=== PATIENT | male | born 1955 | race Caucasian/White ===

== ENCOUNTER 2025-02-27 13:34 | Outpatient (OUT) | payer MEDICARE, SELFPAY ==
[2025-02-27 14:01] LABS: Hematocrit 39.6 % (42.0-54.0); Hemoglobin 13.2 g/dL (14.0-18.0); Immature Granulocytes Abs Auto 0.01 10^3/uL (0.00-0.03); Immature Granulocytes Pct Auto 0.2 % (0.0-0.5); Lymphocytes Absolute Auto 0.8 10^3/uL (1.2-3.8); Mean Corpuscular HGB Conc 33.3 g/dL (29.9-35.2); Mean Corpuscular Hemoglobin 29.9 pg (25.9-34.0); Mean Corpuscular Volume 89.8 fL (80.0-94.0); Platelet Count 185 10^3/uL (150-450); Red Blood Count 4.41 10^6/uL (4.70-6.10); White Blood Count 5.6 10^3/uL (4.0-11.0)
== END 2025-02-27 13:35 | disposition home or self-care (01) ==
LOC: LAB 13:44
PROVIDERS: PCP Family Medicine; Visit Provider Family Medicine
DX: R19.7 Diarrhea, unspecified (principal)
CPT/HCPCS: 36415; 85025; 85652; 86140

== ENCOUNTER 2025-02-28 13:55 | Outpatient (REF) | payer MEDICARE, SELFPAY ==
--- OUTSIDE RECORDS SUMMARY | 2025-02-28 13:58 | XMS_ITS | Patient Health Record ---
Author Organization [facility] in [place] Address [address] [place] [address] Care Team Providers Care Sterile Technician Name Role Phone Paulie Tran Primary Care Provider Allergies Allergen (clinical drug ingredient) Drug/Non Drug Allergy documented on EMR Reaction Allergy Type Onset Date Status Compazinemental status changeDrug AllergyActive Results Component Value Reference Range Notes UA DIP NONAUTO WO MICRO (810 02) - IN OFFICE Reviewed date:02/27/2025 07:57:47 PM Interpretation: Performing Lab: Notes/Report: COLOR straw CLARITYcloudyGLUCOSEnegBILIRUBINnegKETONEposSPECIFIC GRAVITY1.792ACGLAmlrNS2.5 PROTEINposUROBILINOGENnegNITRITEnegLEUKOCYTE ESTERASEnegCBC AUTO DIFF Reviewed date:02/27/2025 07:57:47 PM Interpretation: Performing Lab: Notes/Report: [facility] ,White Blood Count5.64.0-11.0 10 3/uLRed Blood Count4.414.70-6.10 10 6/uL Hnyuuzqmmi22.214.0-18.0 g/xGPxhzxksegt53.642.0-54.0 %Mean Corpuscular Frkcen19.8 80.0-94.0 fLMean Corpuscular Ibwgwbecet81.925.9-34.0 pgMean Corpuscular HGB Conc 33.329.9-35.2 g/dLRed Cell Distribution Width13.011.0-15.0 %Platelet Zelwg073 150-450 10 3/uLMean Platelet Cvirsa01.79.5-13.5 fLNeutrophils Percent Auto73.8 43.0-75.0 %Lymphocytes Percent Auto13.720.5-60.0 %Monocytes Percent Auto9.61.7- 12.0 %Eosinophils Percent Auto1.80.9-7.0 %Basophils Percent Auto0.90.2-2.0 % Immature Granulocytes Pct Auto0.20.0-0.5 %Neutrophils Absolute Auto4.21.4-6.5 10 3/uLLymphocytes Absolute Auto0.81.2-3.8 10 3/uLMonocytes Absolute Auto0.50.3-0.8 10 3/uLEosinophils Absolute Auto0.10.0-0.7 10 3/uLBasophils Absolute Auto0.10.0- 0.1 10 3/uLImmature Granulocytes Abs Auto0.010.00-0.03 10 3/uLPerforming Lab:see noteML - [facility] LBCRP Reviewed date:02/27/2025 07:57:47 PM Interpretation: Performing Lab: Notes/Report: [facility] ,C Reactive Protein<0.50<=0.50 mg/dLPerforming Lab:see noteML - [facility] LBErythrocyte Sedimentation Rate Reviewed date:02/27/2025 07:57:47 PM Interpretation: Performing Lab: Notes/Report: [facility] ,Erythrocyte Sedimentation Rate13<=20 mm/hrPerforming Lab:see noteML - [facility] LB Reason For Referral No Information Medications Medication SIG (Take, Route, Frequency, Duration) Notes Start Date End Date Status amLODIPine Besylate 10 MG TAKE 1 TABLET BY MOUTH EVERY DAY FOR 90 DAYS; Duration: 90 ActiveAtorvastatin Calcium 80 MGTAKE 1 TABLET BY MOUTH EVERY DAY FOR 90 DAYS; Duration: 90ActiveIron (Ferrous Sulfate) 325 (65 Fe) MG1 tablet Orally twice a day; Duration: 30 days5ActiveOndansetron 4 MG1 tablet on the tongue and allow to dissolve Orally qid5ActiveDiclofenac Sodium 75 MG1 tablet as needed Orally Twice a day; Duration: 30 days5ActiveHyoscyamine Sulfate 0.125 MG1-2 tabs SL SL every 4 hrs PRN abd pain5Active Social History Tobacco Use: Social History Observation Description Date Details (start date - stop date) Former Smoker 04/10/1978 - 04/10/1994 Tobacco Use/Smoking Question Answer Notes Patient is a former smoker When did you start smoking?04/10/1978When did you stop smoking?04/10/1994How long has it been since you last smoked?> 10 yearsAdditional Findings: Tobacco Leg-DmmcCq-nqcs smokerAlcohol Screen (Audit-C) Question Answer Notes Did you have a drink containing alcohol in the p ast year? Yes How often did you have 6 or more drinks on one occasion in the past year?Never (0 point)How many drinks did you have on a typical day when you were drinking in the past year?3 or 4 drinks (1 point)How often did you have a drink containing alcohol in the past year?Weekly (3 points)Qfyfye5KtdtickcbsreqlKiiopbxnFEDWM-F (Standard) Question Answer Notes Did you have a drink containing alcohol in the p ast year? Yes How often did you have six or more drinks on one occasion in the past year?Never (0 point)How many drinks did you have on a typical day when you were drinking in the past year?1 or 2 drinks (0 point)How often did you have a drink containing alcohol in the past year?2 to 3 times a week (3 points)Wetrdm8Qmpxdevazunyer Negative Problems Problem Type SNOMED Code ICD Code Onset Dates Problem Status W/U Status Risk Notes Problem Chronic diastolic he art failure (205018044) Chronic diastolic (congestive) heart failure (I50.32) ActiveconfirmedProblemHemorrhoids (64370962)Unspecified hemorrhoids (K64.9) ActiveconfirmedProblemOsteoarthritis (989682135)Osteoarthritis (M19.90)Active confirmedProblemValvular heart disease (364097)Valvular heart disease (I38) ActiveconfirmedProblemAcute sinusitis (08766277)Acute sinus infection (J01.90) ActiveconfirmedProblemIrritable bowel (76024639)Irritable bowel (K58.9)Active confirmedProblemHypertensive heart failure (80752465)Hypertensive heart disease with CHF (I11.0)ActiveconfirmedProblemLow back pain (finding) (112539308)Low back pain at multiple sites (M54.50)Activeconfirmed Vital Signs Blood pressure diastolic 82 mm Hg 02/04/2025 Xfsvgc98 in02/04/2025lood pressure hazyldul070 mm Hg02/04/20255632Ddlaps315.0 lbs 02/04/2025BMI34.17 kg/m202/04/2025 Encounters Encounter Location Date Provider Diagnosis [facility] [address] [place] [address] 12/06/2024 Paulie Hoy Low back pain at [facility] M54.50 [facility] [address] [place] [address] 05/07/2024 Paulie Hoy Low back pain at [facility] M54.50 ; Osteoarthritis M19.90 and Valvular heart disease I38 [facility] [address] [place] [address] 02/04/2025 Paulie Hoy Hypertensive heart disease with CHF I11.0 and Irritable bowel K58.9 [facility] [address] [place] [address] 01/07/2025 Paulie Hoy [facility] [place] [address] [facility] [place] [address]06/20[place]Di[place] [address] [place] [address]/20/2025Doug Hoy Assessments Encounter Date Diagnosis (ICD Code) Assessment Notes Treatment Notes Treatment Clinical Notes Section Notes 05/07/2024 Low back pain at multiple sites (ICD-10 - M54.50) 05/07/2024Osteoarthritis (ICD-10 - M19.90)12/06/2024Low back pain at multiple sites (ICD-10 - M54.50)02/04/2025Hypertensive heart disease with CHF (ICD-10 - I11.0)02/04/2025Irritable bowel (ICD-10 - K58.9)consider creon02/13/2025Diarrhea (ICD-10 - R19.7)05/07/2024Valvular heart disease (ICD-10 - I38)12/06/2024Other Recommended to rest and use a heating pad on the area. Take NSAIDs for pain as needed Plan Of Treatment Pending Test Test Name Order Date OVA and PARASITES (O and P STOOL) 2024 FECAL OCCULT BLOOD 02/13/2025 Stool For Leukocytes 02/13/2025 C DIFF TOX PCR STOOL 02/13/2025 Culture, Stool 02/13/2025 CBC AUTO DIFF 02/13/2025 CRP 02/13/2025 SED RATE WESTERGREN 02/13/2025 Insurance Providers Payer Name Payer Address Payer Phone Subscriber Number Group Number Insured Name Patient Relationship to Insured Coverage Start Date Coverage End Date [employer] AD[employer] PLAN [address] [place] [address] [id number] Self - patient is the insured Medical (General) History Medical History History ICD Code Borderline hypertension R03.0 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
--- OUTSIDE RECORDS SUMMARY | 2025-02-28 13:58 | XMS_ITS | Clinical Summary ---
Author Organization [facility] Address [address] [place] [address] Phone Care Team Providers Care Printing Manager Name Role Phone Scott Dent MD Primary Care Provider [phone] Social History Tobacco UseTypesPacks/DayYears UsedDateSmoking Tobacco: Never AssessedSex and Gender InformationValueDate RecordedSex Assigned at BirthNot on fileLegal Sex Male03/05/2022 12:01 AM ESTGender IdentityNot on fileSexual OrientationNot on file Last Filed Vital Signs Vital SignReadingTime TakenCommentsBlood Ihcbuvus453/6507 9:15 AM EDT Zmlst233110/27/2021 9:15 AM TFYBkgdpsgmgkp00.3 ??C (97.4 ??F)12/17/2021 1:09 PM EDTRespiratory Nsxd8045 9:15 AM EDTOxygen Saturation--Inhaled Oxygen Concentration--Xgdpfx769 kg (250 lb 8 oz)12/17/2021 1:09 PM MXYEcgqaz615.3 cm (5' 11 )12/17/2021 1:09 PM EDTBody Mass Index34.9412/17/2021 1:09 PM EDT Plan of Treatment Not on file Care Teams Team MemberRelationshipSpecialtyStart [place] [address] [place] [address] PCP - General05/11/21
[2025-03-04 20:08] LABS: Lactoferrin, Fecal, Quant. 3.26 ug/mL(g) (0.00-7.24)
== END 2025-02-28 13:56 | disposition home or self-care (01) ==
LOC: LAB 13:55
PROVIDERS: PCP Family Medicine; Visit Provider Family Medicine
DX: R19.7 Diarrhea, unspecified (principal)
CPT/HCPCS: 83631; 87045; 87046; 87177; 87209; 87427; 87493; G0328